=== PATIENT | female | born 1995 | race Two or more races ===

== ENCOUNTER 2018-09-30 18:36 | Outpatient (CLI) | payer OTHER ==
[2018-09-30] MEDS ORDERED: PRENATAL TABLE1 EAC1 PO (19:03)
[2018-09-30] MEDS ORDERED: IRON325 MG PO (19:03)
== END 2018-10-01 12:01 | disposition home or self-care (01) ==
LOC: OBS/DEL 18:36
DX: O26.892 Other specified pregnancy related conditions, second trimester (principal); K29.60 Other gastritis without bleeding; K30 Functional dyspepsia; Z34.02 Encounter for supervision of normal first pregnancy, second trimester

== ENCOUNTER 2018-12-13 16:33 | Outpatient (CLI) | payer OTHER ==
[~2018-12-13 16:33] MED LIST: IRON325 MG PO; PRENATAL TABLE1 EAC1 PO
[2018-12-13] MEDS ORDERED: FOLIC ACID1 MG PO (18:51)
== END 2018-12-14 11:24 | disposition home or self-care (01) ==
LOC: OBS/DEL 16:33
DX: O76 Abnormality in fetal heart rate and rhythm complicating labor and delivery (principal); Z34.03 Encounter for supervision of normal first pregnancy, third trimester; O98.813 Other maternal infectious and parasitic diseases complicating pregnancy, third trimester; B37.89 Other sites of candidiasis

== ENCOUNTER 2019-01-06 06:03 | Inpatient (IN) | payer OTHER ==
[~2019-01-06] VITALS: Ht 152.4 cm; Wt 75.7 kg
[~2019-01-06 06:03] MED LIST changes: +FOLIC ACID1 MG PO
== END 2019-01-08 12:52 | disposition home or self-care (01) | DRG 807 ==
LOC: LDR 06:03 → OB/GYN 20:02
PROVIDERS: ADMIT Obstetrics & Gynecology
PROC: 10E0XZZ Delivery of Products of Conception, External Approach (ICD-10-PCS; principal; 2019-01-06)
PROC: 10907ZC Drainage of Amniotic Fluid, Therapeutic from Products of Conception, Via Natural or Artificial Opening (ICD-10-PCS; 2019-01-06)
PROC: 4A1HXCZ Monitoring of Products of Conception, Cardiac Rate, External Approach (ICD-10-PCS; 2019-01-06)
DX: O80 Encounter for full-term uncomplicated delivery (principal); Z37.0 Single live birth; Z3A.39 39 weeks gestation of pregnancy